=== PATIENT | female | born 1975 | race Caucasian/White ===

== ENCOUNTER 2017-12-30 13:44 | Emergency (ER) | payer MEDICAID ==
[~2017-12-30] VITALS: Ht 149.9 cm; Wt 52.9 kg
[~2017-12-30 13:44] MED LIST: ESCI10TA10; IBUP-1222 PO; LEVO1TAB29 PO; OXYC-302 PO; PREN1TAB60 PO; SERT100T5 PO; ZOLP-413
[2017-12-30 13:45] VITALS: BP 109/29
[2017-12-30] MEDS ORDERED: LITH150C PO (14:18)
[2017-12-30] MEDS ORDERED: ZOLP10TA PO (14:18)
[2017-12-30] MEDS ORDERED: OLAN10TA9 PO (14:18)
[2017-12-30] MEDS ORDERED: ANTI-ANXIETY (14:19)
== END 2017-12-30 14:27 | disposition home or self-care (01) ==
LOC: ED 14:17
DX: R21 Rash and other nonspecific skin eruption (principal); F17.210 Nicotine dependence, cigarettes, uncomplicated
CPT/HCPCS: 99283

== ENCOUNTER 2020-10-07 16:23 | Emergency (ER) | payer MEDICAID ==
[~2020-10-07] VITALS: Ht 149.9 cm; Wt 45.3 kg
[~2020-10-07 16:23] MED LIST changes: +ANTI-ANXIETY; +LITH150C PO; +OLAN10TA69 PO; -OXYC-302 PO; +OXYC1TAB12 PO; +SERT100T32 PO; -SERT100T5 PO; +ZOLP10TA PO
[2020-10-07 17:01] LABS: BASOPHILS % (AUTO) 1 % (0-1); EOSINOPHILS % (AUTO) 0 % (1-7); LYMPHOCYTES % (AUTO) 20 % (22-44); MEAN CORPUSCULAR HEMOGLOBIN 29.1 pg (27.0-34.8); MEAN CORPUSCULAR HGB CONC 33.6 g/dL (32.4-35.8); MEAN PLATELET VOLUME 6.3 fL (7.4-10.4); MONOCYTES % (AUTO) 6 % (2-9); NEUTROPHILS % (AUTO) 73 % (42-75); PLATELET COUNT 461 x10^3/uL (130-400); RED BLOOD COUNT 4.86 x10^6/uL (3.82-5.3); RED CELL DISTRIBUTION WIDTH 13.1 % (9.6-15.2)
[2020-10-07 17:04] LABS: ALBUMIN 4.1 g/dL (3.4-5.0); ANION GAP 4 mmol/L (5-15); CALCIUM 9.5 mg/dL (8.5-10.1); CHLORIDE 108 mmol/L (98-107); CREATININE 0.89 mg/dL (0.55-1.02)
--- NOTE | 2020-10-07 21:01 | NUR ---
ASSUMED CARE OF PATIENT. PATIENT REPORTS TREMORS IN HER HANDS AND FEET X2 DAYS. PT SEEN BY DR DICKSON. VS STABLE. CALL LIGHT IN PLACE. WILL CONTINUE TO MONITOR.
--- NOTE | 2020-10-07 21:44 | NUR ---
PT RESTING IN ROOM. VS STABLE. CALL LIGHT IN PLACE. LAB DRAWN. WILL COTNINUE TO MONITOR.
[2020-10-07 22:31] VITALS: BP 104/64
[2020-10-07] MEDS ORDERED: LITHIUM (22:32)
--- NOTE | 2020-10-07 22:50 | NUR ---
DR DICKSON HAS UPDATED PATIENT.
[2020-10-07 23:26] LABS: FREE T4 (FREE THYROXINE) 0.99 ng/dL (0.76-1.46)
== END 2020-10-07 23:16 | disposition home or self-care (01) ==
LOC: ED 21:18
DX: R25.1 Tremor, unspecified (principal); H57.89 Other specified disorders of eye and adnexa
CPT/HCPCS: 36415; 80048; 80178; 82040; 84439; 84443; 85025; 99283